=== PATIENT | female | born 1970 | race Caucasian/White ===

== ENCOUNTER 2021-02-15 19:33 | Emergency (ER) | payer OTHER ==
[~2021-02-15] VITALS: Ht 172.7 cm; Wt 158.8 kg
--- NOTE | 2021-02-16 15:17 | EKG ---
[facility] [address] [place], [place] [address] Signed Normal sinus rhythm Low voltage QRS Incomplete right bundle branch block Borderline ECG No previous ECGs available Confirmed by CLARISSA DESHPANDE DO ([id number]) on 02/16/2021 3:16:49 PM Electronically Signed By: CLARISSA DESHPANDE DO 02/16/21 1517 PATIENT NAME: ZAY CARDOSO Electrocardiogram DATE OF : 72 PHYSICIAN: CLARISSA DESHPANDE DO REPORT #: [id number] REPORT IS CONFIDENTIAL AND NOT TO BE RELEASED WITHOUT AUTHORIZATION
== END 2021-02-15 21:01 | disposition home or self-care (01) ==
LOC: ED 19:33
DX: R07.89 Other chest pain (principal)
CPT/HCPCS: 71045; 80053; 83735; 84484; 85025; 93005; 93010; 99285-25

== ENCOUNTER 2021-11-01 12:31 | Emergency (ER) | payer OTHER ==
[~2021-11-01] VITALS: Ht 172.7 cm; Wt 158.8 kg
[2021-11-01] MEDS ORDERED: VALACYCLOVIR1000 MG PO (16:34)
[2021-11-01] MEDS ORDERED: OCUFLOX5 ML OPTH (16:34)
== END 2021-11-01 16:44 | disposition home or self-care (01) ==
LOC: ED 12:31
DX: S09.90XA Unspecified injury of head, initial encounter (principal); H10.9 Unspecified conjunctivitis; H53.2 Diplopia; W01.198A Fall on same level from slipping, tripping and stumbling with subsequent striking against other object, initial encounter
CPT/HCPCS: 70450; 81001; 99284-25